=== PATIENT | male | born 1990 | race African-American/Black ===

== ENCOUNTER 2018-03-25 17:18 | Emergency (ER) | payer SELFPAY ==
[~2018-03-25] VITALS: Ht 167.6 cm; Wt 73.6 kg
[2018-03-25 17:22] VITALS: Ht 167.6 cm; Wt 73.6 kg
[2018-03-25 18:28] LABS: ALBUMIN 3.8 g/dL (3.4-5.0); ALKALINE PHOSPHATASE 68 U/L (46-116); ALT (SGPT) 57 U/L (10-68); BILIRUBIN - TOTAL 0.29 mg/dL (0.2-1.3); CALC OSMOLALITY 275 mosm/kg (275-300); CALCIUM 8.5 mg/dL (8.5-10.1); CARBON DIOXIDE 26.6 mmol/L (21.0-32.0); CHLORIDE - SERUM 106 mmol/L (98-107); CREATININE - SERUM 1.1 mg/dL (0.6-1.3); GLUCOSE 98 mg/dL (74-106); POTASSIUM - SERUM 3.6 mmol/L (3.5-5.1); PROTEIN - SERUM 7.4 g/dL (6.4-8.2); SODIUM 139 mmol/L (136-145); UREA NITROGEN 8 mg/dL (7-18); eGFR NON AFRICAN AMERICAN 85 mL/min (90-120)
[2018-03-25 18:32] LABS: BASOPHILS 0.3 % (0-2); EOSINOPHILS 3.6 % (0-7); HEMATOCRIT 39.8 % (42.0-54.0); HEMOGLOBIN 13.8 g/dL (13.5-17.5); IMMATURE GRANULOCYTES 0.3 % (0-5); LYMPHOCYTES 39.2 % (15-50); MCH 30.5 pg (26.0-34.0); MCHC 34.7 g/dL (31.0-37.0); MCV 87.9 fL (80.0-100.0); MEAN PLATELET VOLUME 11.7 fL (7.4-10.4); NEUTROPHILS 47.6 % (40-80); PLATELET COUNT 199 10x3/uL (130-400); RBC 4.53 10x6/uL (4.20-6.10); RDW 13.7 % (11.5-14.5); WBC 7.7 10x3/uL (4.8-10.8)
[2018-03-25 20:31] VITALS: BP 118/69
== END 2018-03-25 20:31 | disposition home or self-care (01) ==
LOC: D.ER 17:18
PROVIDERS: Family Medicine
DX: R07.9 Chest pain, unspecified (principal)

== ENCOUNTER 2019-05-24 16:29 | Emergency (ER) | payer SELFPAY ==
[~2019-05-24] VITALS: Ht 167.6 cm; Wt 81.8 kg
[2019-05-24 17:02] VITALS: Ht 167.6 cm; Wt 81.8 kg
[2019-05-24] MEDS ORDERED: FLUTICASONE PRO16 GM NASAL (18:29)
[2019-05-24] MEDS ORDERED: TESSALON PERLE100 MG PO (18:29)
[2019-05-24] MEDS ORDERED: ZPAK PO (18:29)
[2019-05-24 20:18] VITALS: BP 127/97
== END 2019-05-24 20:19 | disposition home or self-care (01) ==
LOC: D.ER 16:29
DX: J32.9 Chronic sinusitis, unspecified (principal)